=== PATIENT | female | born 1990 ===

== ENCOUNTER 2022-06-07 06:56 | Day surgery (SDC) | payer OTHER | END 2022-06-07 11:45 | disposition home or self-care (01) | LOC: CIR.AMB 06:56 | PROVIDERS: ATTEND Obstetrics & Gynecology | DX: Z30.2 Encounter for sterilization (principal); Z64.1 Problems related to multiparity; Z88.6 Allergy status to analgesic agent; Z20.822 Contact with and (suspected) exposure to COVID-19 ==